=== PATIENT | male | born 1965 | race Caucasian/White ===

== ENCOUNTER → 2016-10-14 | Outpatient (CLI) | payer OTHER ==
[~2016-10-14] MED LIST: ALLOPURINOL100 MG PO; ANAPROX DS550 MG PO; AUGMENTIN 875 M1 TAB PO; COUMADIN5 MG PO; Coumadin2.5 MG PO; DAYPRO600 M1 PO; INDOCIN25 MG PO; KEFLEX500 MG PO; LOMOTIL 0.025 M1 TA1 PO; LOMOTIL 0.025 M1 TAB PO; METOPROLOL50 MG PO; MOTRIN800 MG PO; TOBRADEX 0.1%-0.5 ML OPH; ZITHROMAX Z PA250 MG PO; ZOFRAN ODT4 MG SL
[2016-10-14 12:17] LABS: PROTHROMBIN TIME 22.5 SECONDS (9.0-12.4)
[2016-10-14 12:29] LABS: HEMOGLOBIN A1c 8.8 % (4.8-5.6)
== END | disposition home or self-care (01) ==
LOC: LAB 11:06
PROVIDERS: Family Medicine
DX: E11.65 Type 2 diabetes mellitus with hyperglycemia (principal); I48.91 Unspecified atrial fibrillation

== ENCOUNTER → 2017-02-15 | Outpatient (CLI) | payer OTHER ==
[2017-02-15 14:36] LABS: INTERNATIONAL NORM RATIO 1.9 (2.0-3.5)
== END | disposition home or self-care (01) ==
LOC: LAB 13:16
PROVIDERS: Family Medicine
DX: I48.91 Unspecified atrial fibrillation (principal); Z79.01 Long term (current) use of anticoagulants

== ENCOUNTER → 2017-03-04 | Outpatient (CLI) | payer OTHER ==
[2017-03-04 11:44] LABS: INTERNATIONAL NORM RATIO 1.9 (2.0-3.5)
[2017-03-04 11:46] LABS: BUN 13 mg/dl (7-24); CHLORIDE 102 mmol/L (98-107); CREATININE 0.96 mg/dL (0.70-1.30); POTASSIUM 4.4 mmol/L (3.5-5.1); SODIUM 141 mmol/L (136-145)
[2017-03-04 11:56] LABS: DIGOXIN 0.52 ng/ml (0.8-2.0)
== END | disposition home or self-care (01) ==
LOC: LAB 10:45
PROVIDERS: Family Medicine
DX: I48.91 Unspecified atrial fibrillation (principal); E11.65 Type 2 diabetes mellitus with hyperglycemia; Z79.01 Long term (current) use of anticoagulants

== ENCOUNTER → 2017-03-29 | Outpatient (CLI) | payer OTHER ==
[2017-03-29 10:54] LABS: INTERNATIONAL NORM RATIO 1.8 (2.0-3.5)
== END | disposition home or self-care (01) ==
LOC: LAB 10:01
PROVIDERS: Family Medicine
DX: I48.91 Unspecified atrial fibrillation (principal)

== ENCOUNTER → 2018-11-16 | Outpatient (CLI) | payer OTHER | END | disposition home or self-care (01) | LOC: LAB 07:02 → CARD 07:30 | DX: I48.91 Unspecified atrial fibrillation (principal); I42.8 Other cardiomyopathies ==

== ENCOUNTER → 2020-04-15 | Outpatient (CLI) | payer OTHER | END | disposition home or self-care (01) | LOC: COVID19 10:01 | PROVIDERS: ATTEND Nurse Practitioner | DX: U07.1 COVID-19 (principal); E11.65 Type 2 diabetes mellitus with hyperglycemia ==